=== PATIENT | female | born 1965 | race Caucasian/White ===

== ENCOUNTER 2019-07-13 21:43 | Emergency (ER) | payer BC ==
[~2019-07-13] VITALS: Ht 167.6 cm; Wt 72.6 kg
[2019-07-13] MEDS ORDERED: PREDNISONE 20 M20 M1 PO (23:22)
[2019-07-13 23:34] VITALS: BP 124/65
== END 2019-07-13 23:35 | disposition home or self-care (01) ==
LOC: ER 21:43
DX: T63.481A Toxic effect of venom of other arthropod, accidental (unintentional), initial encounter (principal); I10 Essential (primary) hypertension; E78.00 Pure hypercholesterolemia, unspecified; F17.210 Nicotine dependence, cigarettes, uncomplicated; Z95.2 Presence of prosthetic heart valve; Y92.89 Other specified places as the place of occurrence of the external cause